=== PATIENT | male | born 1975 ===

== ENCOUNTER 2023-05-09 13:41 | Inpatient (IN) | payer OTHER ==
[2023-05-09 14:22] LABS: #Eosinphils 0.2 thou/uL (0.0-0.7); #Monocytes 0.6 thou/uL (0.11-0.59); #Neutrophils 6.9 thou/uL (1.40-6.50); %Basophils 0.4 % (0.0-1.0); %Eosinophils 2.5 % (0.0-10.0); %Lymphocytes 17.4 % (21.0-51.0); %Monocytes 5.8 % (0.0-10.0); %Neutrophils 73.4 % (42.0-75.0); Hematocrit 47.8 % (42.0-52.0); Hemoglobin 16.4 g/dL (14.0-18.0); Mean Corpuscular HGB CONC 34.3 g/dL (32.0-36.0); Mean Corpuscular Volume 90.4 fl (78.0-98.0); Mean Platelet Volume 13.2 fL (7.4-10.4); Platelet Count 117 10x3/uL (130-400); RBC Distribution Width 13.2 % (11.5-14.5); Red Blood Cell (RBC) Count 5.29 mill/uL (4.70-6.10); White Blood Cell (WBC) Count 9.5 10x3/uL (4.8-10.8)
[2023-05-09 14:54] LABS: Troponin I 0.078 ng/mL (< 0.028)
[2023-05-09 14:59] LABS: ALT (SGPT) 14 U/L (8-55); AST (SGOT) 17 U/L (5-34); Albumin 4.5 g/dL (3.5-5.0); Alkaline Phosphatase 79 U/L (40-110); Anion Gap 14 mmol/L (10-20); BUN (Urea Nitrogen) 19 mg/dL (8.9-20.6); Bilirubin, Total 0.7 mg/dL (0.2-1.2); Calc. Creatinine Clearance 0 mL/min (70-130); Calcium 9.1 mg/dL (7.8-10.44); Carbon Dioxide 23 mmol/L (22-29); Chloride 105 mmol/L (98-107); Estimated GFR 109; Globulin 2.9 g/dL (2.4-3.5); Glucose 165 mg/dL (70-105); Lipase 27 U/L (8-78); Potassium 4.3 mmol/L (3.5-5.1); Protein, Total 7.4 g/dL (6.0-8.3); Sodium 138 mmol/L (136-145)
[2023-05-09 17:56] LABS: Troponin I 0.088 ng/mL (< 0.028)
[2023-05-09] MEDS ORDERED: Senokot S 8.6-50 MG TAB PO PRN (21:05)
[2023-05-09] MEDS ORDERED: Acetaminophen 325 MG TAB PO PRN (21:05)
[2023-05-09] MEDS ORDERED: Ondansetron ODT 4 MG TAB PO PRN (21:05)
[2023-05-09 21:48] LABS: Troponin I 0.101 ng/mL (< 0.028)
[2023-05-09 22:09] LABS: Hemoglobin A1c 8.9 % (4.0-6.0)
[2023-05-09] MEDS ORDERED: Glucagon 1 MG/ML KIT IM PRN (22:32)
[2023-05-09] MEDS ORDERED: Dextrose 50% Abboject 50 ML SYRINGE SLOW IVP PRN (22:32)
[2023-05-09] MEDS ORDERED: HumaLOG 300 UNITS/3 ML VIAL SC PRN (22:32)
[2023-05-09] MEDS ORDERED: Dextrose 5% in Water 1,000 ML IV PRN (22:32)
[2023-05-10 01:03] LABS: Troponin I 0.142 ng/mL (< 0.028)
[2023-05-10 02:11] VITALS: BMI 27.7
[2023-05-10 06:27] LABS: #Eosinphils 0.1 thou/uL (0.0-0.7); #Monocytes 0.5 thou/uL (0.11-0.59); #Neutrophils 5.3 thou/uL (1.40-6.50); %Basophils 0.4 % (0.0-1.0); %Eosinophils 1.8 % (0.0-10.0); %Lymphocytes 21.5 % (21.0-51.0); %Monocytes 6.2 % (0.0-10.0); %Neutrophils 69.4 % (42.0-75.0); Hematocrit 47.9 % (42.0-52.0); Hemoglobin 16.5 g/dL (14.0-18.0); Mean Corpuscular HGB CONC 34.4 g/dL (32.0-36.0); Mean Corpuscular Hemoglobin 30.6 pg (27.0-31.0); Mean Corpuscular Volume 88.9 fl (78.0-98.0); Mean Platelet Volume 13.6 fL (7.4-10.4); Red Blood Cell (RBC) Count 5.39 mill/uL (4.70-6.10); White Blood Cell (WBC) Count 7.6 10x3/uL (4.8-10.8)
[2023-05-10 06:44] LABS: Platelet Count 119 10x3/uL (130-400)
[2023-05-10 06:57] LABS: ALT (SGPT) 14 U/L (8-55); AST (SGOT) 15 U/L (5-34); Albumin 4.3 g/dL (3.5-5.0); Alkaline Phosphatase 79 U/L (40-110); Anion Gap 14 mmol/L (10-20); BUN (Urea Nitrogen) 17 mg/dL (8.9-20.6); Bilirubin, Total 0.8 mg/dL (0.2-1.2); Calc. Creatinine Clearance 146 mL/min (70-130); Calcium 9.2 mg/dL (7.8-10.44); Carbon Dioxide 25 mmol/L (22-29); Cardiac Risk 5.2 (Less than 4.5); Chloride 101 mmol/L (98-107); Cholesterol 220 mg/dl (< 200 Desired); Estimated GFR 112; Globulin 3.2 g/dL (2.4-3.5); Glucose 186 mg/dL (70-105); HDL Cholesterol 42 mg/dL (>60 Neg Risk); LDL Cholesterol, Calculated 152 mg/dL; Potassium 3.8 mmol/L (3.5-5.1); Protein, Total 7.5 g/dL (6.0-8.3); Sodium 136 mmol/L (136-145); Triglycerides 130 mg/dL (Less than 150)
[2023-05-10 07:27] LABS: Troponin I 0.272 ng/mL (< 0.028)
[2023-05-10] MEDS ORDERED: Famotidine 20 MG TAB ONE (08:29)
[2023-05-10] MEDS ORDERED: Aspirin Chewable 81 MG TAB ONE (08:29)
[2023-05-10] MEDS: Famotidine 20 MG TAB PO SCH (08:40)
[2023-05-10] MEDS: Aspirin Chewable 81 MG TAB PO SCH (08:40)
[2023-05-10] MEDS ORDERED: Electrolyte Replacement Protocol 1 EACH FS SCH (11:00)
[2023-05-10] MEDS ORDERED: Electrolyte Replacement Protocol FS PRN (11:15)
[2023-05-10 11:17] LABS: Troponin I 0.153 ng/mL (< 0.028)
[2023-05-10] MEDS: Atorvastatin Calcium 40 MG TAB PO SCH (21:16)
[2023-05-10] MEDS: Nitroglycerin 2% Ointment 1 INCH/1 GM Packet TOP SCH (21:16)
[2023-05-11] MEDS: Sodium Chloride 0.9% 1,000 ML IV SCH ×2 (05:42→10:26)
[2023-05-11] MEDS ORDERED: Communication Order-Pharmacy FS SCH ×2 (06:00→17:31)
[2023-05-11] MEDS ORDERED: fentaNYL 50 mcg/mL 1 mL Vial ONE (06:15)
[2023-05-11] MEDS ORDERED: Lidocaine 1% (PF) 30 ML VIAL ONE (06:15)
[2023-05-11] MEDS ORDERED: Midazolam HCl 2 mg/2 ml Vial ONE (06:15)
[2023-05-11] MEDS ORDERED: Heparin 10,000 UNITS/ 10 ML VIAL ONE (06:15)
[2023-05-11] MEDS ORDERED: Nitroglycerin 50 MG/250 ML BOT 0 ML ONE (06:15)
[2023-05-11 06:46] LABS: #Basophils 0.1 thou/uL (0.0-0.2); #Eosinphils 0.3 thou/uL (0.0-0.7); #Monocytes 0.5 thou/uL (0.11-0.59); #Neutrophils 5.2 thou/uL (1.40-6.50); %Basophils 0.6 % (0.0-1.0); %Eosinophils 3.7 % (0.0-10.0); %Lymphocytes 22.3 % (21.0-51.0); %Monocytes 6.9 % (0.0-10.0); %Neutrophils 65.9 % (42.0-75.0); Hematocrit 47.6 % (42.0-52.0); Hemoglobin 16.7 g/dL (14.0-18.0); Mean Corpuscular HGB CONC 35.1 g/dL (32.0-36.0); Mean Corpuscular Hemoglobin 31.2 pg (27.0-31.0); Platelet Count 116 10x3/uL (130-400); Red Blood Cell (RBC) Count 5.35 mill/uL (4.70-6.10); White Blood Cell (WBC) Count 7.8 10x3/uL (4.8-10.8)
[2023-05-11 07:01] LABS: Anion Gap 15 mmol/L (10-20); BUN (Urea Nitrogen) 24 mg/dL (8.9-20.6); Calc. Creatinine Clearance 113 mL/min (70-130); Calcium 9.4 mg/dL (7.8-10.44); Carbon Dioxide 24 mmol/L (22-29); Chloride 101 mmol/L (98-107); Estimated GFR 99; Glucose 232 mg/dL (70-105); Potassium 3.7 mmol/L (3.5-5.1); Sodium 136 mmol/L (136-145)
[2023-05-11] MEDS ORDERED: Protamine Sulfate 50 MG/5 ML VIAL ONE (08:48)
[2023-05-11] MEDS ORDERED: Nitroglycerin 0.4 MG TAB (25 Tab Bottle) SL PRN (09:09)
[2023-05-11] MEDS ORDERED: Acetaminophen/Codeine 30-300mg Tablet PO PRN (09:09)
[2023-05-11] MEDS ORDERED: Sodium Chloride 0.9% 200 ML IV PRN (09:09)
[2023-05-11] MEDS: Magnesium 2 GM/50 ML(in water) 2 GM in Premix 1 BAG IVPB SCH (10:26)
[2023-05-11] MEDS: Acetaminophen/Codeine 30-300mg Tablet PO PRN (11:53)
[2023-05-11] MEDS ORDERED: Iopamidol 370 76% 100 ML VIAL ONE (14:15)
[2023-05-11] MEDS ORDERED: Zolpidem Tartrate 5 MG TAB PO PRN (17:31)
[2023-05-11] MEDS: Glimepiride 2 MG TAB PO SCH (17:45)
[2023-05-11 17:56] LABS: #Basophils 0.1 thou/uL (0.0-0.2); #Eosinphils 0.2 thou/uL (0.0-0.7); #Neutrophils 8.2 thou/uL (1.40-6.50); %Basophils 0.5 % (0.0-1.0); %Eosinophils 1.5 % (0.0-10.0); %Lymphocytes 18.4 % (21.0-51.0); %Monocytes 8.6 % (0.0-10.0); %Neutrophils 70.5 % (42.0-75.0); Hematocrit 47.1 % (42.0-52.0); Hemoglobin 16.2 g/dL (14.0-18.0); Mean Corpuscular HGB CONC 34.4 g/dL (32.0-36.0); Mean Corpuscular Hemoglobin 30.6 pg (27.0-31.0); Mean Corpuscular Volume 88.9 fl (78.0-98.0); Mean Platelet Volume 13.5 fL (7.4-10.4); Platelet Count 131 10x3/uL (130-400); RBC Distribution Width 13.2 % (11.5-14.5); White Blood Cell (WBC) Count 11.7 10x3/uL (4.8-10.8)
[2023-05-11 18:21] LABS: Anion Gap 14 mmol/L (10-20); BUN (Urea Nitrogen) 26 mg/dL (8.9-20.6); Calc. Creatinine Clearance 103 mL/min (70-130); Calcium 8.9 mg/dL (7.8-10.44); Carbon Dioxide 22 mmol/L (22-29); Chloride 102 mmol/L (98-107); Estimated GFR 88; Glucose 363 mg/dL (70-105); Potassium 4.3 mmol/L (3.5-5.1); Sodium 134 mmol/L (136-145)
[2023-05-11 18:26] LABS: Troponin I 0.088 ng/mL (< 0.028)
[2023-05-11] MEDS: HumaLOG 300 UNITS/3 ML VIAL SC PRN (21:16)
[2023-05-11] MEDS ORDERED: CEFAZOLIN 2 GM in Sodium Chloride 0.9% 100 ML IVPB SCH (23:15)
[2023-05-11] MEDS: Nitroglycerin 2% Ointment 1 INCH/1 GM Packet TOP SCH (23:25)
[2023-05-12 05:49] LABS: #Basophils 0.1 thou/uL (0.0-0.2); #Eosinphils 0.2 thou/uL (0.0-0.7); #Monocytes 0.9 thou/uL (0.11-0.59); #Neutrophils 7.5 thou/uL (1.40-6.50); %Basophils 0.5 % (0.0-1.0); %Eosinophils 1.5 % (0.0-10.0); %Lymphocytes 22.1 % (21.0-51.0); %Monocytes 8.3 % (0.0-10.0); Hematocrit 42.6 % (42.0-52.0); Hemoglobin 14.9 g/dL (14.0-18.0); Mean Corpuscular Hemoglobin 31.3 pg (27.0-31.0); Mean Corpuscular Volume 89.5 fl (78.0-98.0); Mean Platelet Volume 13.2 fL (7.4-10.4); Platelet Count 126 10x3/uL (130-400); Red Blood Cell (RBC) Count 4.76 mill/uL (4.70-6.10); White Blood Cell (WBC) Count 11.3 10x3/uL (4.8-10.8)
[2023-05-12 06:01] LABS: Anion Gap 8 mmol/L (10-20); BUN (Urea Nitrogen) 29 mg/dL (8.9-20.6); Calc. Creatinine Clearance 129 mL/min (70-130); Calcium 8.8 mg/dL (7.8-10.44); Carbon Dioxide 29 mmol/L (22-29); Chloride 101 mmol/L (98-107); Estimated GFR 109; Glucose 249 mg/dL (70-105); Potassium 4.2 mmol/L (3.5-5.1); Sodium 134 mmol/L (136-145)
[2023-05-12] MEDS ORDERED: PHENYLEPHRINE-NS 100 MCG/ML 10 ML SYRINGE ONE (09:24)
[2023-05-12] MEDS ORDERED: Dexamethasone 4 mg/ml Vial ONE (09:24)
[2023-05-12] MEDS ORDERED: EPINEPHrine 1 MG/10 ML Abboject SYRINGE ONE (09:24)
[2023-05-12] MEDS ORDERED: Bupivacaine PF 0.5% 30 ML VIAL ONE (09:24)
[2023-05-12] MEDS ORDERED: Albumin 5% 500 ML ONE ×2 (09:24→15:51)
[2023-05-12] MEDS ORDERED: EPINEPHrine 1 MG/ML VIAL ONE (09:26)
[2023-05-12] MEDS ORDERED: Heparin 10,000 UNITS/1 ML VIAL 30,000 UNITS in Sodium Chloride 0.9% 1,000 ML FS SCH (10:00)
[2023-05-12] MEDS ORDERED: PROPOFOL 20 ML ONE ×2 (10:59→16:12)
[2023-05-12] MEDS ORDERED: ePHEDrine Sulfate 50 MG/10 ML VIAL ONE (11:01)
[2023-05-12] MEDS ORDERED: Lidocaine 1% MPF 2 ML VIAL ONE (11:10)
[2023-05-12] MEDS ORDERED: Sodium Chloride 0.9% 100 ML ONE (11:12)
[2023-05-12] MEDS ORDERED: CEFAZOLIN 2 GM VIAL ONE (11:12)
[2023-05-12] MEDS ORDERED: Fentanyl 250 MCG/5 ML VIAL ONE (11:54)
[2023-05-12] MEDS ORDERED: Midazolam HCl 5 mg/ml Vial ONE (11:55)
[2023-05-12] MEDS ORDERED: Thrombin 5000 UNITS/5 ML VIAL ONE (12:02)
[2023-05-12] MEDS ORDERED: Aminocaproic Acid 5 GM/20 ML VIAL ONE ×2 (12:02→12:22)
[2023-05-12] MEDS ORDERED: Mannitol 12.5 GM/50 ML ONE (12:02)
[2023-05-12] MEDS ORDERED: Heparin 30,000 units/30 ml VIAL ONE (12:02)
[2023-05-12] MEDS ORDERED: Lidocaine 2% PF 100 mg/5 ml Syringe ONE (12:02)
[2023-05-12] MEDS ORDERED: Papaverine 60 MG/2 ML VIAL ONE (12:02)
[2023-05-12] MEDS ORDERED: Vancomycin 1 GM VIAL ONE (12:02)
[2023-05-12] MEDS ORDERED: Protamine Sulfate 250 MG/25 ML VIAL ONE (12:02)
[2023-05-12] MEDS ORDERED: Sodium Bicarb 50 mEq/50 ML VIAL ONE (12:02)
[2023-05-12] MEDS ORDERED: Calcium Chloride 1 GM/10 ML Abboject SYRINGE ONE (12:02)
[2023-05-12] MEDS ORDERED: Heparin 5,000 UNITS/ML VIAL ONE (12:02)
[2023-05-12] MEDS ORDERED: Potassium Chloride 60 mEq (30 mL) VIAL ONE (12:02)
[2023-05-12] MEDS ORDERED: Magnesium 5 GM/10 ML VIAL ONE (12:02)
[2023-05-12] MEDS ORDERED: Cardioplegic Soln 1,000 ML BAG ONE (12:02)
[2023-05-12] MEDS ORDERED: Insulin Regular 300 UNITS/3 ML VIAL ONE (12:21)
[2023-05-12] MEDS ORDERED: Esmolol 100 MG/10 ML VIAL ONE (12:22)
[2023-05-12] MEDS ORDERED: Sodium Chloride 0.9% 200 ML ONE (12:22)
[2023-05-12] MEDS ORDERED: Norepinephrine 4 MG/4 ML VIAL ONE (12:22)
[2023-05-12] MEDS ORDERED: Lidocaine 1% PF 5 ML VIAL ONE (12:22)
[2023-05-12] MEDS ORDERED: Sodium Chloride 0.9% 250 ML 250 ML ONE (12:22)
[2023-05-12] MEDS ORDERED: Rocuronium Bromide 10 MG/ML (10ML VIAL) ONE ×2 (12:22→13:53)
[2023-05-12] MEDS ORDERED: Heparin 10,000 UNITS/ 10 ML VIAL ONE (12:49)
[2023-05-12] MEDS ORDERED: fentaNYL PF 100 MCG/2 ML SYRINGE ONE (16:36)
[2023-05-12] MEDS ORDERED: CEFAZOLIN 1 GM VIAL ONE (16:52)
[2023-05-12] MEDS ORDERED: Nitroglycerin 50 MG/250 ML BOT 250 ML IVPB PRN (17:21)
[2023-05-12] MEDS ORDERED: Guaifenesin DM 100-10/5 ML UDCUP PO PRN (17:21)
[2023-05-12] MEDS ORDERED: niCARdipine 25 MG in Sodium Chloride 0.9% 250 ML 250 ML IVPB PRN (17:21)
[2023-05-12] MEDS ORDERED: Hetastarch 6% 500 ML 500 ML IVPB PRN (17:21)
[2023-05-12] MEDS ORDERED: hydrALAZINE 20 MG/ML VIAL SLOW IVP PRN (17:21)
[2023-05-12] MEDS ORDERED: Mag-Al 1200 mg/1200 mg/30 ML UDCUP PO PRN (17:21)
[2023-05-12] MEDS ORDERED: Promethazine HCl 25 MG/ML VIAL IM PRN (17:21)
[2023-05-12] MEDS ORDERED: Insulin Regular 300 UNITS/3 ML VIAL SC PRN (17:45)
[2023-05-12] MEDS ORDERED: Dextrose 5% in Water 1,000 ML IV PRN (17:45)
[2023-05-12] MEDS ORDERED: Dextrose 50% Abboject 50 ML SYRINGE SLOW IVP PRN (17:45)
[2023-05-12] MEDS ORDERED: Glucagon 1 MG/ML KIT SC PRN (17:45)
[2023-05-12 17:50] LABS: Manual Diff?? YES; Mean Corpuscular HGB CONC 35.5 g/dL (32.0-36.0); Mean Corpuscular Hemoglobin 31.7 pg (27.0-31.0); Mean Corpuscular Volume 89.4 fl (78.0-98.0); Platelet Count 90 10x3/uL (130-400); RBC Distribution Width 12.9 % (11.5-14.5); Red Blood Cell (RBC) Count 3.69 mill/uL (4.70-6.10); White Blood Cell (WBC) Count 22.7 10x3/uL (4.8-10.8)
[2023-05-12 17:52] LABS: Hemoglobin 11.7 g/dL (14.0-18.0)
[2023-05-12] MEDS: Albumin 5% 12.5 GM (250 mL) BOT IVPB PRN ×2 (17:52→22:53)
[2023-05-12 17:53] LABS: Delete Auto Diff?? YES
[2023-05-12] MEDS: HUMULIN R 100 UNITS in Sodium Chloride 0.9% 100 ML IVPB SCH (17:54)
[2023-05-12 18:00] LABS: INR-International Normal Ratio 1.5; Prothrombin Time 18.1 sec (12.0-14.7)
[2023-05-12 18:01] LABS: PTT 28.9 sec (22.9-36.1)
[2023-05-12] MEDS: Albumin 25% 0 ML ONE (18:12)
[2023-05-12] MEDS: Post-Op Insulin Drip Protocol IVPB ONE (18:12)
[2023-05-12] MEDS: Magnesium 2 GM/50 ML(in water) 2 GM in Premix 1 BAG IVPB SCH (18:13)
[2023-05-12 18:25] LABS: Band 22 % (5-11); CellaVision Operator ID LAB.MJL; Large Platelets 1.7 % (0-5); Lymphocytes 9 % (21-51); Metamyelocyte 1 % (0-0); Monocytes 9 % (0-10); Neutrophil 60 % (42-75); Platelet Adequacy Comment Platelets Decreased; Polychromasia SLIGHT = 2-3 cells HPF (0-2); Total Cell Count 115
[2023-05-12] MEDS: Morphine 2 MG/ML VIAL SLOW IVP PRN (18:26)
[2023-05-12 18:36] LABS: Actual Bicarbonate (HCO3a) 22.6 mEq/L (22-28); Base Excess (BEa) -2.6 mEq/L (-2.0 to +3.0); CO2 Tension 41.1 mmHg (35.0-45.0); Calcium, Ionized (arterial) 1.05 mmol/L (1.12-1.30); Carboxyhemoglobin (COHb) 0.4 gm% (0.0-3.0); Hematocrit-ABG 35 % (42.0-52.0); Hemoglobin (Hb) 11.8 g/dL (14.0-18.0); Potassium - ABG Lab 3.94 mmol/L (3.70-5.30); pH, Arterial 7.359 (7.35-7.45)
[2023-05-12 18:37] LABS: Puncture Site Arterial Line
[2023-05-12 18:38] LABS: ALV-art Gradient 110.125 mmHg (0-20)
[2023-05-12 18:41] LABS: Anion Gap 6 mmol/L (10-20); BUN (Urea Nitrogen) 24 mg/dL (8.9-20.6); Calc. Creatinine Clearance 155 mL/min (70-130); Calcium 6.8 mg/dL (7.8-10.44); Carbon Dioxide 24 mmol/L (22-29); Chloride 111 mmol/L (98-107); Estimated GFR 115; Glucose 177 mg/dL (70-105); Potassium 3.9 mmol/L (3.5-5.1); Sodium 137 mmol/L (136-145)
[2023-05-12] MEDS: Ipratropium/Albuterol 3 ML NEB NEB SCH (18:49)
[2023-05-12] MEDS: Calcium Gluc 4.6 MEQ/10 ML (100 MG/ML) SLOW IVP SCH (19:23)
[2023-05-12] MEDS: Famotidine/PF 20 mg/2ml Vial SLOW IVP SCH (19:36)
[2023-05-12] MEDS: Potassium Chloride 20 MEQ (100 mL) BAG IVPB PRN (19:36)
[2023-05-12 20:30] LABS: Actual Bicarbonate (HCO3a) 21.2 mEq/L (22-28); Base Excess (BEa) -4.1 mEq/L (-2.0 to +3.0); CO2 Tension 39.3 mmHg (35.0-45.0); Calcium, Ionized (arterial) 1.09 mmol/L (1.12-1.30); Carboxyhemoglobin (COHb) 0.7 gm% (0.0-3.0); Hematocrit-ABG 36 % (42.0-52.0); Hemoglobin (Hb) 12.1 g/dL (14.0-18.0); O2 Tension (PaO2), arterial 142.9 mmHg (80.0-100.0); Potassium - ABG Lab 4.95 mmol/L (3.70-5.30); Puncture Site Arterial Line; pH, Arterial 7.349 (7.35-7.45)
[2023-05-12 20:31] LABS: ALV-art Gradient 93.175 mmHg (0-20)
[2023-05-12] MEDS: fentaNYL 50 mcg/mL 1 mL Vial SLOW IVP PRN (21:00)
[2023-05-12] MEDS: Acetaminophen 325 MG TAB PO PRN (21:54)
[2023-05-12] MEDS: Atorvastatin Calcium 10 MG TAB PO SCH (21:54)
[2023-05-12] MEDS: Ondansetron PF 4 MG/2 ML Vial IVP PRN (22:54)
[2023-05-12] MEDS: HYDROcodone/Acetaminophen 5/325 mg Tablet PO PRN (23:34)
[2023-05-12 23:53] LABS: Hematocrit 31.4 % (42.0-52.0)
[2023-05-13 00:09] LABS: Potassium 4.4 mmol/L (3.5-5.1)
[2023-05-13] MEDS: CEFAZOLIN 2 GM in Sodium Chloride 0.9% 100 ML IVPB SCH (01:13)
[2023-05-13] MEDS: traMADol HCl 50 MG TAB PO PRN (01:39)
[2023-05-13] MEDS: NOREPINEPHRINE 8 MG/250 ML-D5W 250 ML IVPB PRN (02:41)
[2023-05-13] MEDS: fentaNYL 50 mcg/mL 1 mL Vial SLOW IVP PRN (04:52)
[2023-05-13 05:22] LABS: #Monocytes 1.1 thou/uL (0.11-0.59); #Neutrophils 14.2 thou/uL (1.40-6.50); %Basophils 0.1 % (0.0-1.0); %Lymphocytes 4.2 % (21.0-51.0); %Neutrophils 88.3 % (42.0-75.0); Hematocrit 28.5 % (42.0-52.0); Hemoglobin 9.8 g/dL (14.0-18.0); Mean Corpuscular HGB CONC 34.4 g/dL (32.0-36.0); Mean Corpuscular Hemoglobin 31.5 pg (27.0-31.0); Mean Corpuscular Volume 91.6 fl (78.0-98.0); Mean Platelet Volume 13.9 fL (7.4-10.4); RBC Distribution Width 13.7 % (11.5-14.5); Red Blood Cell (RBC) Count 3.11 mill/uL (4.70-6.10); White Blood Cell (WBC) Count 16.1 10x3/uL (4.8-10.8)
[2023-05-13 05:23] LABS: Platelet Count 87 10x3/uL (130-400)
[2023-05-13 05:51] LABS: Anion Gap 12 mmol/L (10-20); BUN (Urea Nitrogen) 25 mg/dL (8.9-20.6); Calc. Creatinine Clearance 160 mL/min (70-130); Calcium 8.1 mg/dL (7.8-10.44); Carbon Dioxide 21 mmol/L (22-29); Chloride 107 mmol/L (98-107); Estimated GFR 116; Glucose 156 mg/dL (70-105); Magnesium 2.3 mg/dL (1.6-2.6); Potassium 4.5 mmol/L (3.5-5.1); Sodium 135 mmol/L (136-145)
[2023-05-13] MEDS ORDERED: diphenhydrAMINE 25 MG CAP PO PRN (07:32)
[2023-05-13] MEDS ORDERED: Artificial Tear Sol 15 ML BOT EA EYE PRN (07:32)
[2023-05-13] MEDS ORDERED: Nitroglycerin 0.4 MG TAB (25 Tab Bottle) SL PRN (07:32)
[2023-05-13] MEDS ORDERED: Zolpidem Tartrate 5 MG TAB PO PRN (07:32)
[2023-05-13] MEDS ORDERED: Mineral Oil ENEMA PR PRN (07:32)
[2023-05-13] MEDS ORDERED: Mag-Al 1200 mg/1200 mg/30 ML UDCUP PO PRN (07:32)
[2023-05-13] MEDS ORDERED: Atorvastatin Calcium 10 MG TAB PO SCH (08:16)
[2023-05-13] MEDS ORDERED: Aspirin 325 mg Enteric Coated Tablet PO SCH (09:00)
[2023-05-13] MEDS: Magnesium 2 GM/50 ML(in water) 2 GM in Premix 1 BAG IVPB SCH (09:50)
[2023-05-13] MEDS: Aspirin 325 MG TAB PO SCH (09:51)
[2023-05-13] MEDS: Metoprolol Tartrate 25 MG TAB PO SCH (09:51)
[2023-05-13] MEDS: Ketorolac Tromethamine 30 MG (1 mL) VIAL IVP PRN (09:51)
[2023-05-13] MEDS: Famotidine 20 MG TAB PO SCH (09:52)
[2023-05-13] MEDS: Insulin Glargine 30 UNITS/0.3 ML VIAL SC SCH ×2 (10:30→20:48)
[2023-05-13] MEDS: Phenol 177 ML BOT PO PRN (11:24)
[2023-05-13] MEDS: Insulin Regular 300 UNITS/3 ML VIAL SC PRN (12:44)
[2023-05-13] MEDS: NOREPINEPHRINE 8 MG/250 ML-D5W 250 ML ONE (14:40)
[2023-05-13] MEDS ORDERED: Insulin Glargine 30 UNITS/0.3 ML VIAL SC PRN (17:42)
[2023-05-13 20:01] LABS: Hematocrit 23.5 % (42.0-52.0); Hemoglobin 7.9 g/dL (14.0-18.0); Platelet Count 61 10x3/uL (130-400)
[2023-05-13] MEDS ORDERED: Dextrose 50% Abboject 50 ML SYRINGE SLOW IVP PRN (20:09)
[2023-05-13] MEDS ORDERED: Dextrose 5% in Water 1,000 ML IV PRN (20:09)
[2023-05-13] MEDS ORDERED: Glucagon 1 MG/ML KIT IM PRN (20:09)
[2023-05-13] MEDS: [UNRECOGNIZED DRUG - MIXTURE] PO SCH (20:36)
[2023-05-13] MEDS: Atorvastatin Calcium 20 MG TAB PO SCH (20:48)
[2023-05-13] MEDS: HumaLOG 300 UNITS/3 ML VIAL SC PRN (20:50)
[2023-05-13 21:39] LABS: INR-International Normal Ratio 1.7; Prothrombin Time 20.1 sec (12.0-14.7)
[2023-05-13 21:40] LABS: PTT 39.6 sec (22.9-36.1)
[2023-05-13 21:42] LABS: D-Dimer Test 0.36 mcg/mL (0.27-0.43)
[2023-05-14] MEDS: HYDROcodone/Acetaminophen 5/325 mg Tablet PO PRN (04:32)
[2023-05-14] MEDS: HumaLOG 300 UNITS/3 ML VIAL SC PRN (04:33)
[2023-05-14 04:48] LABS: #Neutrophils 10.3 thou/uL (1.40-6.50); %Basophils 0.1 % (0.0-1.0); %Lymphocytes 14.9 % (21.0-51.0); %Monocytes 7.3 % (0.0-10.0); %Neutrophils 77.3 % (42.0-75.0); Hematocrit 27.7 % (42.0-52.0); Hemoglobin 9.4 g/dL (14.0-18.0); Mean Corpuscular HGB CONC 33.9 g/dL (32.0-36.0); Mean Corpuscular Hemoglobin 30.9 pg (27.0-31.0); Mean Corpuscular Volume 91.1 fl (78.0-98.0); Mean Platelet Volume 12.9 fL (7.4-10.4); Platelet Count 92 10x3/uL (130-400); RBC Distribution Width 14.8 % (11.5-14.5); Red Blood Cell (RBC) Count 3.04 mill/uL (4.70-6.10); White Blood Cell (WBC) Count 13.4 10x3/uL (4.8-10.8)
[2023-05-14 06:18] LABS: INR-International Normal Ratio 1.5; Prothrombin Time 18.4 sec (12.0-14.7)
[2023-05-14 06:19] LABS: PTT 37.8 sec (22.9-36.1)
[2023-05-14 06:28] LABS: Anion Gap 7 mmol/L (10-20); BUN (Urea Nitrogen) 26 mg/dL (8.9-20.6); Calc. Creatinine Clearance 153 mL/min (70-130); Calcium 8.3 mg/dL (7.8-10.44); Carbon Dioxide 26 mmol/L (22-29); Chloride 104 mmol/L (98-107); Estimated GFR 115; Glucose 165 mg/dL (70-105); Magnesium 2.5 mg/dL (1.6-2.6); Phosphorus 1.8 mg/dL (2.3-4.7); Sodium 133 mmol/L (136-145)
[2023-05-14] MEDS ORDERED: Methyl Salicylate/Menthol 85 GM TUBE TOP PRN (08:42)
[2023-05-14] MEDS: Docusate 100 MG CAP PO SCH (10:12)
[2023-05-14] MEDS: Furosemide 20 MG (2 mL) VIAL SLOW IVP SCH ×2 (10:13→15:30)
[2023-05-14] MEDS: Potassium Phosphate 15 MMOL in Sodium Chloride 0.9% 100 ML IVPB SCH (12:30)
[2023-05-14] MEDS: Benzocaine/Menthol 1 LOZ LOZ PO PRN (17:53)
[2023-05-14] MEDS ORDERED: MULTIVITAMIN PO SCH (21:00)
[2023-05-14] MEDS: Multivit, Therapeutic 1 TAB PO SCH (21:26)
[2023-05-15 05:09] LABS: #Basophils 0.1 thou/uL (0.0-0.2); #Eosinphils 0.1 thou/uL (0.0-0.7); #Monocytes 1.2 thou/uL (0.11-0.59); #Neutrophils 11.2 thou/uL (1.40-6.50); %Basophils 0.3 % (0.0-1.0); %Eosinophils 0.4 % (0.0-10.0); %Lymphocytes 15.2 % (21.0-51.0); %Neutrophils 75.6 % (42.0-75.0); Hematocrit 30.4 % (42.0-52.0); Hemoglobin 10.2 g/dL (14.0-18.0); Mean Corpuscular HGB CONC 33.6 g/dL (32.0-36.0); Mean Corpuscular Hemoglobin 30.8 pg (27.0-31.0); Mean Corpuscular Volume 91.8 fl (78.0-98.0); Platelet Count 127 10x3/uL (130-400); RBC Distribution Width 14.6 % (11.5-14.5); Red Blood Cell (RBC) Count 3.31 mill/uL (4.70-6.10); White Blood Cell (WBC) Count 14.9 10x3/uL (4.8-10.8)
[2023-05-15 05:32] LABS: Anion Gap 11 mmol/L (10-20); BUN (Urea Nitrogen) 22 mg/dL (8.9-20.6); Calc. Creatinine Clearance 165 mL/min (70-130); Calcium 8.8 mg/dL (7.8-10.44); Carbon Dioxide 26 mmol/L (22-29); Chloride 99 mmol/L (98-107); Estimated GFR 115; Glucose 183 mg/dL (70-105); Sodium 132 mmol/L (136-145)
[2023-05-15] MEDS ORDERED: Levothyroxine Sodium 25 MCG TAB PO SCH (06:00)
[2023-05-15] MEDS: Furosemide 40 MG (4 mL) VIAL SLOW IVP SCH ×2 (10:19→16:29)
[2023-05-15] MEDS: HumaLOG 300 UNITS/3 ML VIAL SC PRN (12:04)
[2023-05-16 06:33] LABS: Anion Gap 11 mmol/L (10-20); BUN (Urea Nitrogen) 19 mg/dL (8.9-20.6); Calc. Creatinine Clearance 177 mL/min (70-130); Calcium 8.5 mg/dL (7.8-10.44); Carbon Dioxide 31 mmol/L (22-29); Chloride 99 mmol/L (98-107); Estimated GFR 117; Glucose 181 mg/dL (70-105); Magnesium 2.2 mg/dL (1.6-2.6); Potassium 3.7 mmol/L (3.5-5.1); Sodium 137 mmol/L (136-145)
[2023-05-16] MEDS: Potassium Citrate 10 MEQ TAB PO SCH (08:36)
[2023-05-16] MEDS: Furosemide 20 MG TAB PO SCH (08:37)
[2023-05-16] MEDS: Senokot S 8.6-50 MG TAB PO SCH (08:48)
[2023-05-16] MEDS: HYDROcodone/Acetaminophen 5/325 mg Tablet PO SCH (11:40)
[2023-05-16] MEDS: Bisacodyl 5 MG TAB PO PRN (21:20)
[2023-05-16] MEDS: Insulin Glargine 30 UNITS/0.3 ML VIAL SC SCH (21:33)
[2023-05-17] MEDS: Amoxicillin/Potassium Clav 500 MG TAB PO SCH (09:04)
[2023-05-17] MEDS: Insulin Glargine 30 UNITS/0.3 ML VIAL SC SCH (09:05)
[2023-05-17] MEDS: Bisacodyl 10 MG SUPP PR PRN (10:13)
[2023-05-17] MEDS: Polyethylene Glycol 3350 17 GM Packet PO SCH (11:45)
[2023-05-17] MEDS: Senokot S 8.6-50 MG TAB PO SCH ×2 (11:46→20:54)
[2023-05-17 12:09] LABS: Actual Bicarbonate (HCO3a) 22.1 mEq/L (22-28); Analyzer IN Cardio OR; Base Excess (BEa) -1.4 mEq/L (-2.0 to +3.0); Calcium, Ionized (arterial) 1.11 mmol/L (1.12-1.30); Carboxyhemoglobin (COHb) 0.6 gm% (0.0-3.0); Hematocrit-ABG 43 % (42.0-52.0); Hemoglobin (Hb) 14.7 g/dL (14.0-18.0); Potassium - ABG Lab 3.51 mmol/L (3.70-5.30); pH, Arterial 7.431 (7.35-7.45)
[2023-05-17 12:10] LABS: Actual Bicarbonate (HCO3a) 22.1 mEq/L (22-28); Analyzer IN Cardio OR; Base Excess (BEa) -2.3 mEq/L (-2.0 to +3.0); CO2 Tension 36.8 mmHg (35.0-45.0); Carboxyhemoglobin (COHb) 0.9 gm% (0.0-3.0); Hematocrit-ABG 41 % (42.0-52.0); Hemoglobin (Hb) 14.1 g/dL (14.0-18.0); O2 Tension (PaO2), arterial 198.6 mmHg (80.0-100.0); Potassium - ABG Lab 3.67 mmol/L (3.70-5.30); pH, Arterial 7.396 (7.35-7.45)
[2023-05-17 12:10] LABS: Actual Bicarbonate (HCO3a) 23.3 mEq/L (22-28); Analyzer IN Cardio OR; Base Excess (BEa) -2.8 mEq/L (-2.0 to +3.0); CO2 Tension 46.4 mmHg (35.0-45.0); Calcium, Ionized (arterial) 0.96 mmol/L (1.12-1.30); Carboxyhemoglobin (COHb) 0.4 gm% (0.0-3.0); Hematocrit-ABG 30 % (42.0-52.0); Hemoglobin (Hb) 10.3 g/dL (14.0-18.0); O2 Tension (PaO2), arterial 322.8 mmHg (80.0-100.0); Potassium - ABG Lab 3.04 mmol/L (3.70-5.30); pH, Arterial 7.319 (7.35-7.45)
[2023-05-17 12:11] LABS: Actual Bicarbonate (HCO3a) 22.4 mEq/L (22-28); Analyzer IN Cardio OR; Base Excess (BEa) -2.9 mEq/L (-2.0 to +3.0); CO2 Tension 40.9 mmHg (35.0-45.0); Calcium, Ionized (arterial) 1.03 mmol/L (1.12-1.30); Carboxyhemoglobin (COHb) 0.2 gm% (0.0-3.0); Hematocrit-ABG 31 % (42.0-52.0); Hemoglobin (Hb) 10.5 g/dL (14.0-18.0); O2 Tension (PaO2), arterial 330.9 mmHg (80.0-100.0); Potassium - ABG Lab 3.46 mmol/L (3.70-5.30); pH, Arterial 7.356 (7.35-7.45)
[2023-05-17 12:11] LABS: Actual Bicarbonate (HCO3a) 23.5 mEq/L (22-28); Analyzer IN Cardio OR; Base Excess (BEa) -2.9 mEq/L (-2.0 to +3.0); CO2 Tension 47.9 mmHg (35.0-45.0); Calcium, Ionized (arterial) 1.05 mmol/L (1.12-1.30); Carboxyhemoglobin (COHb) 0.3 gm% (0.0-3.0); Hematocrit-ABG 32 % (42.0-52.0); Hemoglobin (Hb) 10.8 g/dL (14.0-18.0); O2 Tension (PaO2), arterial 398.7 mmHg (80.0-100.0); Potassium - ABG Lab 3.97 mmol/L (3.70-5.30); pH, Arterial 7.309 (7.35-7.45)
[2023-05-17 12:11] LABS: Actual Bicarbonate (HCO3v) 24.3 mEq/L (22-28); Analyzer IN Cardio OR; Base Excess -2.2 mEq/L (-2.0 to +3.0); Calcium, Ionized (venous) 1.05 mmol/L (1.16-1.32); Chloride (VBG) 102 mmol/L (98-106); Hematocrit-VBG 31 % (42.0-52.0); Hemoglobin (Hb) 10.6 g/dL (13.1-17.2); Potassium (VBG) 4.37 mmol/L (3.70-5.30); Sodium 134 mmol/L (133-146)
[2023-05-17 12:12] LABS: Puncture Site Arterial Line
[2023-05-17 12:12] LABS: Actual Bicarbonate (HCO3a) 21.7 mEq/L (22-28); Analyzer IN Cardio OR; Base Excess (BEa) -3.5 mEq/L (-2.0 to +3.0); CO2 Tension 39.5 mmHg (35.0-45.0); Calcium, Ionized (arterial) 1.02 mmol/L (1.12-1.30); Carboxyhemoglobin (COHb) 0.4 gm% (0.0-3.0); Hematocrit-ABG 34 % (42.0-52.0); Hemoglobin (Hb) 11.7 g/dL (14.0-18.0); Potassium - ABG Lab 3.29 mmol/L (3.70-5.30); pH, Arterial 7.357 (7.35-7.45)
[2023-05-17 12:12] LABS: Puncture Site Arterial Line
[2023-05-17 12:13] LABS: Puncture Site Arterial Line
[2023-05-17 12:13] LABS: Puncture Site Arterial Line
[2023-05-17 12:14] LABS: Puncture Site Arterial Line
[2023-05-17 12:14] LABS: Puncture Site Arterial Line
[2023-05-17] MEDS: Ipratropium/Albuterol 3 ML NEB NEB SCH (19:30)
[2023-05-18] MEDS: Levothyroxine Sodium 25 MCG TAB PO SCH (05:23)
[2023-05-18] MEDS: Empagliflozin 10 MG TAB PO SCH (09:41)
[2023-05-18] MEDS: Insulin Glargine 30 UNITS/0.3 ML VIAL SC SCH (09:41)
[2023-05-18] MEDS: Polyethylene Glycol 3350 17 GM Packet PO SCH (09:42)
[2023-05-18 11:38] VITALS: TEMP 97.3
[2023-05-18 13:53] VITALS: BP 121/76
[2023-05-18] MEDS ORDERED: Atorvastatin Calcium 40 MG TAB PO SCH (21:00)
[2023-05-18] MEDS ORDERED: Insulin Glargine 30 UNITS/0.3 ML VIAL SC SCH (21:00)
== END 2023-05-18 14:55 | disposition home or self-care (01) | DRG 234 ==
LOC: ERS 13:41 → ERHOLD 20:35 → 2SW 05-10 13:23 → OBSVTOIN 05-12 09:15 → CCU 05-12 10:45 → 2NO 05-14 09:11
PROVIDERS: ADMIT Student in an Organized Health Care Education/Training Program; ATTEND Internal Medicine
PROC: 4A023N7 Measurement of Cardiac Sampling and Pressure, Left Heart, Percutaneous Approach (ICD-10-PCS; 2023-05-11)
PROC: B2111ZZ Fluoroscopy of Multiple Coronary Arteries using Low Osmolar Contrast (ICD-10-PCS; 2023-05-11)
PROC: B2151ZZ Fluoroscopy of Left Heart using Low Osmolar Contrast (ICD-10-PCS; 2023-05-11)
PROC: 02100Z9 Bypass Coronary Artery, One Artery from Left Internal Mammary, Open Approach (ICD-10-PCS; principal; 2023-05-12)
PROC: 021209W Bypass Coronary Artery, Three Arteries from Aorta with Autologous Venous Tissue, Open Approach (ICD-10-PCS; 2023-05-12)
PROC: 06BQ4ZZ Excision of Left Saphenous Vein, Percutaneous Endoscopic Approach (ICD-10-PCS; 2023-05-12)
PROC: 02L70CK Occlusion of Left Atrial Appendage with Extraluminal Device, Open Approach (ICD-10-PCS; 2023-05-12)
PROC: 5A1221Z Performance of Cardiac Output, Continuous (ICD-10-PCS; 2023-05-12)
PROC: 4A133R1 Monitoring of Arterial Saturation, Peripheral, Percutaneous Approach (ICD-10-PCS; 2023-05-12)
PROC: 3E033XZ Introduction of Vasopressor into Peripheral Vein, Percutaneous Approach (ICD-10-PCS; 2023-05-12)
PROC: 30233J1 Transfusion of Nonautologous Serum Albumin into Peripheral Vein, Percutaneous Approach (ICD-10-PCS; 2023-05-12)
PROC: 30233N1 Transfusion of Nonautologous Red Blood Cells into Peripheral Vein, Percutaneous Approach (ICD-10-PCS; 2023-05-13)
PROC: 6A550Z2 Pheresis of Platelets, Single (ICD-10-PCS; 2023-05-14)
DX: I21.4 Non-ST elevation (NSTEMI) myocardial infarction (principal); I25.110 Atherosclerotic heart disease of native coronary artery with unstable angina pectoris; R79.89 Other specified abnormal findings of blood chemistry; I24.9 Acute ischemic heart disease, unspecified; E11.9 Type 2 diabetes mellitus without complications; E78.00 Pure hypercholesterolemia, unspecified; K59.00 Constipation, unspecified; E78.5 Hyperlipidemia, unspecified; Z79.82 Long term (current) use of aspirin; Z79.84 Long term (current) use of oral hypoglycemic drugs; Z79.899 Other long term (current) drug therapy
CPT/HCPCS: 36415; 36416; 36430; 71045; 80048; 80053; 80061; 82805; 83036; 83690; 83735; 84100; 84484; 85025; 85347; 85379; 85610; 85730; 86850; 86900; 86901; 93005; 93010; 93306; 93458; 93798; 93880; 94002; 94150; 94640; 94760; 96374; 99152; 99153; A4311; A4648; C1713; C1751; C1769; G0378; J0171; J0612; J0665; J0690; J1100; J1644; J1815; J1885; J1940; J2001; J2150; J2250; J2272; J2405; J2440; J2704; J2720; J3010; J3370; J3475; J3480; J3490; J7050; J7620; P9016; P9035; P9045; Q9967; S0017; S0028